=== PATIENT | female | born 1965 | race Caucasian/White ===

== ENCOUNTER 2018-04-22 15:29 | Emergency (ER) | payer BC ==
[2018-04-22 15:42] VITALS: BP 157/85
[2018-04-22] MEDS ORDERED: Ketorolac INJ* 30 MG/ML 1 ML VIAL IM ONE (16:42)
--- NOTE | 2018-04-22 16:42 | UC ---
Upper Extremity HPI - HPI Summary HPI Summary: Patient states that she developed some soreness to the back side of her left shoulder about 5 days ago. She notes that has been getting worse. She states that she had some problems with her left shoulder in the past and she had a steroid shot which helped; however, this is different, she states that is the muscle to the inside of her left shoulder blade. She denies any associated chest pain or shortness of breath. She has taken some ibuprofen sporadically and rubbed "Vicks" on the site which she notes gives her some partial relief as does massage over the mm. There is some tingling into her L arm with movement. - History of Current Complaint Chief Complaint: UCGeneralIllness Stated Complaint: LEFT ARM TINGLING Time Seen by Provider: 04/22/18 16:30 Hx Obtained From: Patient Onset/Duration: Gradual Onset Pain Intensity: 10 Aggravating Factor(s): Movement Associated Signs And Symptoms: Positive: Numbness/Tingling - Allergies/Home Medications Allergies/Adverse Reactions: Allergies Allergy/AdvReac Type Severity Reaction Status Date / Time No Known Allergies Allergy Verified 04/22/18 15:42 Home Medications: Home Medications Levothyroxine TAB* [Synthroid 100 MCG TAB*] 100 mcg DAILY 04/22/18 [History Confirmed 04/22/18] PMH/Surg Hx/FS Hx/Imm Hx Endocrine History: Thyroid Disease - Surgical History Surgical History: Yes Surgery Procedure, Year, and Place: RIGHT TOTAL KNEE, 2009 - Family History Known Family History: Positive: None - Social History Occupation: Employed Full-time Alcohol Use: None Substance Use Type: None Smoking Status (MU): Heavy Every Day Tobacco Smoker Type: Cigarettes Amount Used/How Often: 1 PPD Length of Time of Smoking/Using Tobacco: 10 years Have You Smoked in the Last Year: Yes - Immunization History Most Recent Tetanus Shot: utd Vaccination Up to Date: Yes Review of Systems Constitutional: Negative Skin: Negative Eyes: Negative ENT: Negative Respiratory: Negative Cardiovascular: Negative Gastrointestinal: Negative Genitourinary: Negative Motor: Negative Neurovascular: Negative Musculoskeletal: Other: - L shoulder area pain Neurological: Negative Psychological: Negative Is Patient Immunocompromised?: No All Other Systems Reviewed And Are Negative: Yes Physical Exam Triage Information Reviewed: Yes Appearance: Well-Appearing Vital Signs: Initial Vital Signs Temp 96 F 04/22/18 15:31 Pulse 67 04/22/18 15:31 Resp 16 04/22/18 15:31 BP 157/85 04/22/18 15:31 Pulse Ox 98 04/22/18 15:31 Vital Signs Reviewed: Yes Eyes: Positive: Conjunctiva Clear ENT: Positive: Pharynx normal, TMs normal. Negative: Nasal congestion, Nasal drainage Neck: Positive: Supple, Nontender, No Lymphadenopathy, Other: - C-spine non tender. Respiratory: Positive: Chest non-tender, Lungs clear, Normal breath sounds Cardiovascular: Positive: RRR, No Murmur, Pulses Normal - radial are symmetrical. Abdomen Description: Positive: Nontender, No Organomegaly, Soft Bowel Sounds: Positive: Present Musculoskeletal: Positive: Other: - Thoracic and lumbar spine are without deformity or tenderness. Left shoulder when compared to the right showed no gross deformity swelling or discoloration. Patient is exquisitely tender to palpation over the left lateral trapezius muscle and left medial scapular border where overt muscle spasm is appreciated. The left shoulder has full passive and active range of motion. left upper extremity has gross sensorivascular motor function including 5 out of 5 strength and 2+ reflexes plus strong symmetrical radial pulses. Neurological: Positive: Alert Psychological: Positive: Age Appropriate Behavior Skin Exam: Normal Skin: Negative: rashes Upper Extremity Course/Dx - Course Course Of Treatment: Patient is nontoxic. No concern for cardiopulmonary pathology. History and exam is consistent with left trapezius muscle spasm and left upper extremity radiculopathy. I will treat with out of work for 3 days, anti-inflammatory with regular use, muscle relaxer and close follow-up with primary care. - Differential Dx/Diagnosis Provider Diagnoses: L trapezius mm spasm. LUE radiculopathy Discharge - Sign-Out/Discharge Documenting (check all that apply): Patient Departure All imaging exams completed and their final reports reviewed: No Studies - Discharge Plan Condition: Stable Disposition: HOME Prescriptions: Cyclobenzaprine TAB* [Flexeril 10 MG TAB*] 10 mg PO TID #10 tab Naproxen [Naprosyn 500 mg tab] 500 mg PO BID 7 Days #14 tablet Patient Education Materials: Muscle Spasm (ED) Forms: *Work Release Referrals: Maldonado MAHONEY,Chip Conner [Primary Care Provider] - 3 Days - Billing Disposition and Condition Condition: STABLE Disposition: Home
== END 2018-04-22 17:11 | disposition home or self-care (01) ==
LOC: UCCORT 15:29
DX: M62.838 Other muscle spasm (principal); M54.10 Radiculopathy, site unspecified; F17.210 Nicotine dependence, cigarettes, uncomplicated; E07.9 Disorder of thyroid, unspecified
CPT/HCPCS: 96372; 99202; G0463; J1885